=== PATIENT | female | born 1990 | race Caucasian/White ===

== ENCOUNTER → 2016-04-07 | Outpatient (CLI) | payer OTHER ==
[~2016-04-07] MED LIST: GADOBUTROL 7.5 MMOL/7.5 ML (GADAVIST) VIAL IV ONE; HYOS0.127 PO; LRT10T PO; ORTHOCYCLINE
--- OUTSIDE RECORDS SUMMARY | 2016-04-07 09:19 | XMS REPORT | Continuity of Care Document ---
Author Author [facility] Organization [facility] Address Unknown Phone Unavailable Care Team Providers Care Tire Builder Name Role Phone Alia Reynoso PCP [phone] Source Comments Some departments are not documenting in the electronic medical record. If you do not see the information that you expected, contact Release of Information in the Health Information Management department at [phone] for further assistance in locating additional records.[facility] Active Allergies and Adverse Reactions No Known Allergies Current Medications Prescription Sig. Disp. Refills Start End Date Status Date DULoxetine DR (CYMBALTA) Take 60 mg by mouth Active 60 mg capsule daily. ARIPiprazole (ABILIFY) 5 Take 5 mg by mouth daily. Active mg tablet ETONOGESTREL/ETHINYL Insert or Apply to Active ESTRADIOL (NUVARING VA) vaginal area. OXYCODONE Take 5-325 mg by mouth as Active HCL/ACETAMINOPHEN Needed. (PERCOCET PO) ONDANSETRON PO Take by mouth. Active CETIRIZINE HCL (ZYRTEC Take by mouth. Active PO) LOPERAMIDE HCL (IMODIUM Take by mouth as Needed. Active PO) IBUPROFEN PO Take by mouth as Needed. Active Active Problems No known active problems Social History Tobacco Use Types Packs/Day Years Used Date Former Smoker Quit: 05/04/2011 Last Filed Vital Signs Vital Sign Reading Time Taken Blood Pressure 109/73 08/04/2011 1:19 PM CDT Pulse 63 08/04/2011 1:19 PM CDT Temperature 36.5 C (97.7 F) 08/04/2011 1:19 PM CDT Respiratory Rate 16 08/04/2011 1:19 PM CDT Height 1.626 m (5' 4") 08/04/2011 1:19 PM CDT Weight 57.607 kg (127 lb) 08/04/2011 1:19 PM CDT Body Mass Index 21.79 08/04/2011 1:19 PM CDT Oxygen Saturation - - Plan of Care Health Maintenance Due Date Last Done Comments Physical (Comprehensive) 1996 Exam Hpv Vaccines (#1) 2000 Pertussis Vaccine 2000 Tetanus Vaccine 2006 Cervical Cancer Screening 2010 Influenza Vaccine 11/01/2015 Results from Last 3 Months Not on file
--- NOTE | 2016-04-07 11:03 | Diagnostic Imaging Report ---
PROCEDURE: MR imaging of the brain with and without contrast. INDICATION: Extremely weak arms and legs x two and one-half weeks. Reportedly recently improving. TECHNIQUE: Multiplanar, multisequence MR imaging of the brain was performed with and without contrast. CORRELATION STUDY: None. FINDINGS: Ventricles and sulci appear unremarkable. Normal garcia white signal differentiation. There is no significant white matter signal abnormalities. No edema pattern. There are no restricted areas of diffusion. Postcontrast imaging without abnormal areas of intracranial enhancement. Craniocervical junction and midline structures, including sella appearing unremarkable. Normal expected intracranial flow voids. Visualized paranasal sinuses and mastoid air cells unremarkable. IMPRESSION: Overall unremarkable pre and postcontrast MRI examination of the brain. Dictated by: Dictated on workstation # [id number]
== END ==
LOC: RAD 09:15
PROVIDERS: ATTEND Pediatrics
DX: R53.1 Weakness (principal)
CPT/HCPCS: 70553

== ENCOUNTER → 2016-06-11 | Outpatient (CLI) | payer OTHER ==
--- NOTE | 2016-06-11 16:52 | Diagnostic Imaging Report ---
PROCEDURE: MR imaging cervical spine with and without contrast. TECHNIQUE: Multiplanar and multisequence MRI of the cervical spine was performed with and without contrast. INDICATION: Headache. Patient feeling off balance. CONTRAST: 6 mL of Gadavist is administered intravenously. FINDINGS: The patient has a relatively wide AP dimension of the spinal canal. The alignment of the cervical spine is satisfactory. The vertebral body heights are preserved. There is minimal disc desiccation and mild disc height loss at C5/6 level. The spinal cord is normal in caliber, contour, and signal. The bone marrow demonstrates a minimally enhancing T1 and T2 bright signal lesion measuring 8 mm located in the T3 vertebral body compatible with a hemangioma. The foramen magnum and upper cervical canal appear normal. There is no disc herniation, spinal canal stenosis, or foraminal narrowing seen at the C2/3 or C3/4 level. C4/5: There is a mild disc spur complex with no spinal canal stenosis. There is mild foraminal narrowing only on the left side from uncovertebral joint hypertrophy. C5/6: No disc herniation, no spinal canal or foraminal stenosis. C6/7: There is a mild disc spur complex with no spinal canal stenosis. There is mild uncovertebral joint hypertrophy on the right side with associated mild foraminal stenosis. No foraminal stenosis on the left. C7/T1: No significant abnormality. Postcontrast images demonstrate no enhancing mass within the spinal canal or within the spinal cord. The spinal cord demonstrates no focal demyelinating lesion and no enhancing mass. IMPRESSION: There are minimal disc and uncovertebral joint degenerative changes. No spinal canal stenosis at any level. Dictated by: Dictated on workstation # [id number]
== END ==
LOC: RAD 15:18
PROVIDERS: ATTEND Nurse Practitioner Community Health
DX: R53.81 Other malaise (principal); R53.83 Other fatigue; M50.30 Other cervical disc degeneration, unspecified cervical region
CPT/HCPCS: 72156

== ENCOUNTER → 2016-06-16 | Day surgery (SDC) | payer OTHER ==
[~2016-06-16] VITALS: Ht 160 cm; Wt 52.6 kg
[~2016-06-16] MED LIST changes: -GADOBUTROL 7.5 MMOL/7.5 ML (GADAVIST) VIAL IV ONE
--- NOTE | 2016-06-16 14:48 | Anesthesia-Procedure Note ---
Procedures/Interventions Discussed Risk,Benefits: Yes Patient Consents: Yes Position: Sitting Sterile Technique: Yes Opening Pressure: N/A Fluid Color: clear Spinal Needle Used: Other (25) Procedure Notes Patient presented to [facility] for Lumbar Puncture to r/o MS. Procedure explained, questions answered, consent signed. Opening pressure not ordered, thus patient was placed in the sitting position for the procedure. Patient's back sterile prepped and draped with Chloraprep. 2 cc 1% Lidocaine used to localize at L4- L5. 3.5 inch 25 g Pencan spinal needle utilized to locate SAB easily. CSF clear. Collected 4 cc in each of the 4 vials over approximately 10 minutes. Needle removed and bandage applied over site. Patient offered a beverage and post care instructions provided. Patient's mom is present in the room with her. Vials and orders from KENNETH Vazquez sent to lab. BEREKET GARRISON CRNA Jun 16, 2016 14:48
[2016-06-16 15:10] VITALS: BP 122/71
[2016-06-16 15:36] LABS: APPEARANCE,CSF CLEAR; COLOR,CSF COLORLESS
[2016-06-16 15:44] LABS: WHITE BLOOD CELL,CSF 1 CELLS (0-5)
[2016-06-16 15:59] LABS: CSF GLUCOSE 60 MG/DL (50-80); CSF TOTAL PROTEIN 26 MG/DL (15-40)
[2016-06-18 11:27] LABS: CSF IGG P 1.2 mg/dL (0.0-6.0)
== END | disposition home or self-care (01) ==
LOC: SDC 13:02
PROVIDERS: ATTEND Nurse Practitioner Community Health
DX: R53.81 Other malaise (principal); R53.83 Other fatigue
CPT/HCPCS: 36415; 82042; 82784; 82945; 83605; 84157; 89051

== ENCOUNTER → 2016-09-30 | Outpatient (CLI) | payer OTHER ==
[~2016-09-30] VITALS: Ht 160 cm; Wt 63.5 kg
[2016-09-30] VITALS (39 sets, daily range): BP systolic 106–127; BP diastolic 66–111
[~2016-09-30] MED LIST changes: +ATROPINE INJECTION 1 MG/10 ML SYR (ABBOTT) ONE; +NS IV 1000 ML 1,000 ML IV SCH; +NS IV 1000 ML 1,000 ML ONE
--- NOTE | 2016-10-01 11:19 | TILT TABLE TEST ---
PROCEDURE PHYSICIAN: KARIME MITCHELL DATE OF PROCEDURE: 09/30/2016 TILT TABLE STUDY: DIAGNOSIS: Postural dizziness, near or syncope. Baseline blood pressure was obtained. The patient was attached to a spa consultant. She laid flat on a tilt table which was then tilted to 70 degrees with the patient's head up. The cardiac rhythm was monitored continuously. Blood pressure was taken every minute. This was continued for 45 minutes. There was no significant drop in blood pressure or change in heart rate. CONCLUSIONS: Tilt table study negative for neurocardiogenic syncope. Job ID: [id number] Dictated Date: 09/30/2016 18:01:49 Press Washer Date: 10/01/2016 11:15:10 / lorenza
== END ==
LOC: CARD 07:05
PROVIDERS: ATTEND Nurse Practitioner Family
DX: R42 Dizziness and giddiness (principal); R06.02 Shortness of breath; I20.9 Angina pectoris, unspecified; R53.83 Other fatigue; R00.2 Palpitations

== ENCOUNTER → 2016-10-06 | Outpatient (CLI) | payer OTHER ==
[~2016-10-06] MED LIST changes: -ATROPINE INJECTION 1 MG/10 ML SYR (ABBOTT) ONE; -NS IV 1000 ML 1,000 ML IV SCH; -NS IV 1000 ML 1,000 ML ONE
== END ==
LOC: CARD 10:37
PROVIDERS: ATTEND Nurse Practitioner Community Health
DX: R00.0 Tachycardia, unspecified (principal)
CPT/HCPCS: 93306

== ENCOUNTER → 2016-10-07 | Outpatient (CLI) | payer OTHER | LOC: CARD 13:05 | PROVIDERS: ATTEND Internal Medicine Cardiovascular Disease | DX: R07.89 Other chest pain (principal); R06.02 Shortness of breath; R00.2 Palpitations | CPT/HCPCS: 93225; 93226; 93351 ==

== ENCOUNTER → 2016-10-21 | Outpatient (CLI) | payer OTHER ==
--- NOTE | 2016-10-21 17:39 | Diagnostic Imaging Report ---
PROCEDURE: US Thyroid. TECHNIQUE: Multiple real-time grayscale images were obtained of the thyroid in various projections. INDICATION: Fatigue. COMPARISON: There are no previous studies available for comparison. FINDINGS: The thyroid gland is not enlarged. The right lobe measures 5 x 1.8 x 1.5 cm while the left lobe is estimated to be 4 x 1.3 x 1.4 cm (normal gland size 4-5 x 2 x 2 cm or less). In the inferior pole of each lobe, there are solid nodules. On the left, the nodule measures 0.9 x 0.8 x 1.4 cm. On the right, the nodule in the inferior pole seems to have a calcified rim. This would suggest that it is probably benign. This nodule measures 1.0 x 0.9 x 1.3 cm. There is also a smaller 0.6 x 0.7 x 0.4 cm solid nodule in the medial aspect of the inferior pole of the right lobe. These nodules may well be benign. Even so, I would recommend that a nuclear medicine thyroid scan be performed to better characterize them. There is no solid or cystic mass involving either upper pole of the thyroid gland. IMPRESSION: There are multiple nodules involving the inferior poles of the thyroid gland. A nuclear medicine thyroid scan would be recommended to better characterize these findings. Dictated by: Dictated on workstation # [id number]
== END ==
LOC: RAD 09:10
PROVIDERS: ATTEND Nurse Practitioner Community Health
DX: E04.2 Nontoxic multinodular goiter (principal); R00.0 Tachycardia, unspecified
CPT/HCPCS: 76536

== ENCOUNTER → 2016-10-28 | Outpatient (CLI) | payer OTHER ==
--- NOTE | 2016-10-29 15:35 | Diagnostic Imaging Report ---
INDICATION: Thyroid nodule. RADIOPHARMACEUTICAL: 194 microcuries of iodine 123 was given orally. FINDINGS: The examination shows a 4 hour uptake of 29% and a 24-hour uptake of 45% which is elevated. Images show homogeneous uptake in both lobes with no hot or cold nodules seen. IMPRESSION: Increased uptake, consistent with hyperthyroidism. Dictated by: Dictated on workstation # [id number]
== END ==
LOC: CARD 11:13
PROVIDERS: ATTEND Nurse Practitioner Community Health
DX: E04.1 Nontoxic single thyroid nodule (principal)
CPT/HCPCS: 78014

== ENCOUNTER → 2016-12-27 | Outpatient (CLI) | payer OTHER ==
[2016-12-27 09:54] LABS: ALANINE AMINOTRANSFERASE 15 U/L (0-55); ALBUMIN 4.3 GM/DL (3.2-4.5); ANION GAP 8 MMOL/L (5-14); ASPARTATE AMINO TRANSFERASE 14 U/L (5-34); BILIRUBIN,TOTAL 0.7 MG/DL (0.1-1.0); BLOOD UREA NITROGEN 17 MG/DL (7-18); BUN/CREATININE RATIO 23; CALCIUM 9.1 MG/DL (8.5-10.1); CARBON DIOXIDE 24 MMOL/L (21-32); CHLORIDE 108 MMOL/L (98-107); CREATININE SERUM 0.75 MG/DL (0.60-1.30); GFR ESTIMATED > 60; GLUCOSE 78 MG/DL (70-105); POTASSIUM 4.2 MMOL/L (3.6-5.0); SODIUM 140 MMOL/L (135-145)
[2016-12-27 10:15] LABS: THYROID STIMULATING HORMONE 0.47 UIU/ML (0.35-4.94)
[2016-12-29 10:23] LABS: LYME AB G M 0.13 Index (0.00-0.89)
[2016-12-29 13:35] LABS: EHRLICHIA CHAFFEENSIS G ABY <1:16 (<1:16)
[2016-12-30 07:15] LABS: IGG ROCKY MOUNTAIN SPOTTED FEV <1:16 (<1:16); IGM ROCKY MOUNTAIN SPOTTED FEV <1:10 (<1:10); LYME AB INTERP Negative (Negative); TRIIODOTHYRONINE T3 FREE 3.2 pg/mL (2.4-4.5)
[2016-12-30 07:20] LABS: TULAREMIA ANTIBODY <1:20
== END ==
LOC: LAB 08:31
PROVIDERS: ATTEND Internal Medicine Endocrinology, Diabetes & Metabolism
DX: E04.2 Nontoxic multinodular goiter (principal); R00.2 Palpitations; R53.1 Weakness; I10 Essential (primary) hypertension
CPT/HCPCS: 36415; 80053; 82308; 82384; 82530; 83835; 84439; 84443; 84445; 84480; 84481; 86376; 86618; 86666; 86668; 86757